=== PATIENT | male | born 1965 | race Two or more races ===

== ENCOUNTER 2018-11-07 14:49 | Emergency (ER) | payer SELFPAY ==
--- NOTE | 2018-11-07 15:50 | EDM.PDOC ---
ED HPI GENERAL MEDICAL PROBLEM - General Chief Complaint: Abdominal Pain Stated Complaint: ABDOMINAL PAIN Time Seen by Provider: 11/07/18 15:37 Source of Information: Reports: Patient, RN Notes Reviewed History Limitations: Reports: No Limitations - History of Present Illness INITIAL COMMENTS - FREE TEXT/NARRATIVE: Patient is a 53-year-old male who presents to the ED for evaluation of abdominal pain. He states that this is a sharp pain located directly behind his belly button. This has been present for around 3 days now and he has been vomiting with this daily. He noted that on Wednesday he had diarrhea, about 10 episodes, but has had regular bowel movement since then. The patient states that he has had fever and chills, and has not had much of an appetite, and has not been able to keep much down at all if he is eating. He did have a history of an umbilical hernia repair in 2005. He does not note any other previous GI issues like colitis or diverticulitis. He states his primary care doc is a Dr. Olmos in [place]. He further relates a history of high blood pressure and diabetes. He cannot remember the exact name of his medications but he states therefore blood pressure and diabetes at this time. He notes that the only abdominal surgery he had has been for the hernia repair and 2005. He notes a history of polycystic kidney disease. Abdomen Pain Score (Numeric/FACES): 8 - Related Data Allergies Allergy/AdvReac Type Severity Reaction Status Date / Time No Known Allergies Allergy Verified 11/07/18 15:21 Home Meds: Home Meds Ondansetron [Zofran ODT] 8 mg PO Q8H PRN #28 tab.dis 11/07/18 [Rx] Past Medical History Cardiovascular History: Reports: Hypertension Genitourinary History: Reports: Renal Calculus, Renal Disease Endocrine/Metabolic History: Reports: Diabetes, Type I - Past Surgical History GI Surgical History: Reports: Hernia, Abdominal Male Surgical History: Reports: Kidney Stone Extraction Musculoskeletal Surgical History: Reports: Other (See Below) Other Musculoskeletal Surgeries/Procedures:: right ankle surgery Social & Family History - Family History Family Medical History: Noncontributory - Tobacco Use Smoking Status *Q: Never Smoker - Caffeine Use Caffeine Use: Reports: Coffee - Recreational Drug Use Recreational Drug Use: No ED ROS GENERAL - Review of Systems Review Of Systems: See Below Constitutional: Reports: Fever, Decreased Appetite HEENT: Reports: No Symptoms Respiratory: Reports: No Symptoms Cardiovascular: Reports: No Symptoms GI/Abdominal: Reports: Abdominal Pain (behind belly button, and generalized lower abdominal pain), Diarrhea, Decreased Appetite, Flatus, Nausea, Vomiting. Denies: Black Stool, Bloody Stool, Constipation : Denies: Dysuria, Flank Pain, Frequency Musculoskeletal: Reports: No Symptoms Skin: Reports: No Symptoms Neurological: Reports: No Symptoms Psychiatric: Reports: No Symptoms Hematologic/Lymphatic: Reports: No Symptoms Immunologic: Reports: No Symptoms ED EXAM, GI/ABD - Physical Exam Exam: See Below Exam Limited By: No Limitations General Appearance: Alert, WD/WN, No Apparent Distress Eyes: Bilateral: Normal Appearance Ears: Normal External Exam Nose: Normal Inspection Throat/Mouth: Normal Inspection, Normal Lips, Normal Teeth, Normal Gums, Normal Oropharynx, Normal Voice, No Airway Compromise Head: Atraumatic, Normocephalic Neck: Normal Inspection Respiratory/Chest: No Respiratory Distress, Lungs Clear, Normal Breath Sounds, No Accessory Muscle Use, Chest Non-Tender Cardiovascular: Normal Peripheral Pulses, Regular Rate, Rhythm, No Murmur GI/Abdominal Exam: Normal Bowel Sounds, Soft, No Distention, Tender ( periumbilically and generalized RLQ and LLL) Back Exam: Normal Inspection, Full Range of Motion Extremities: Normal Inspection, Normal Capillary Refill Neurological: Alert, Oriented, Normal Cognition, Normal Gait, No Motor/Sensory Deficits Psychiatric: Normal Affect, Normal Mood Skin Exam: Warm, Dry, Intact, Normal Color, No Rash Course - Vital Signs Last Recorded V/S: Last Vital Signs Temp 97.2 F 11/07/18 15:21 Pulse 98 11/07/18 15:21 Resp 16 11/07/18 15:21 BP 181/109 H 11/07/18 15:21 Pulse Ox 98 11/07/18 15:21 - Orders/Labs/Meds Orders: Active Orders 24 hr Category Date Time Status UA W/MICROSCOPIC [URIN] Stat Lab 11/07/18 15:57 Ordered Sodium Chloride 0.9% [Normal Saline] 1,000 ml Med 11/07/18 16:00 Ordered IV ASDIRECTED Medication Orders Sodium Chloride (Normal Saline) 1,000 mls @ 999 mls/hr IV ASDIRECTED TUNG Last Admin: 11/07/18 16:36 Dose: 999 mls/hr Labs: Laboratory Tests 11/07/18 11/07/18 Range/Units 17:10 17:10 WBC 8.41 (4.23-9.07) K/mm3 RBC 5.50 (4.63-6.08) M/mm3 Hgb 13.4 L (13.7-17.5) gm/L Hct 42.7 (40.1-51.0) % MCV 77.6 L (79.0-92.2) fl MCH 24.4 L (25.7-32.2) pg MCHC 31.4 L (32.2-35.5) g/dl RDW Std Deviation 42.6 (35.1-43.9) fL Plt Count 484 H (163-337) K/mm3 MPV 9.8 (9.4-12.3) fl Neutrophils % (Manual) 67 H (40-60) % Band Neutrophils % 0 (0-10) % Lymphocytes % (Manual) 26 (20-40) % Atypical Lymphs % 0 % Monocytes % (Manual) 3 (2-10) % Eosinophils % (Manual) 3 (0.8-7.0) % Basophils % (Manual) 1 (0.2-1.2) Platelet Estimate Increased Plt Morphology Comment See note Hypochromasia 1+ slight Microcytosis 1+ slight RBC Morph Comment Not Reportable Sodium 141 (136-145) mEq/L Potassium 4.4 (3.5-5.1) mEq/L Chloride 104 (98-107) mEq/L Carbon Dioxide 28 (21-32) mEq/L Anion Gap 13.4 (5-15) BUN 20 H (7-18) mg/dL Creatinine 2.0 H (0.7-1.3) mg/dL Est Cr Clr Drug Dosing 45.12 mL/min Estimated GFR (MDRD) 35 (>60) mL/min BUN/Creatinine Ratio 10.0 L (14-18) Glucose 126 H (74-106) mg/dL Calcium 9.1 (8.5-10.1) mg/dL Total Bilirubin 0.4 (0.2-1.0) mg/dL AST 16 (15-37) U/L ALT 20 (16-63) U/L Alkaline Phosphatase 174 H (46-116) U/L Total Protein 8.2 (6.4-8.2) g/dl Albumin 2.9 L (3.4-5.0) g/dl Globulin 5.3 gm/dL Albumin/Globulin Ratio 0.6 L (1-2) Meds: Medications Generic Name Dose Route Start Last Admin Trade Name Freq PRN Reason Stop Dose Admin Sodium Chloride 1,000 mls @ 999 mls/hr 11/07/18 16:00 11/07/18 16:36 Normal Saline IV 999 mls/hr ASDIRECTED TUNG Administration Discontinued Medications Generic Name Dose Route Start Last Admin Trade Name Freq PRN Reason Stop Dose Admin Diatrizoate Meglum/Diatrizoate Sod 60 ml 11/07/18 16:16 11/07/18 17:16 Gastrografin 37% PO 11/07/18 16:17 60 ml ONETIME ONE Administration Hydromorphone HCl 0.5 mg 11/07/18 15:57 11/07/18 16:38 Dilaudid IVPUSH 11/07/18 15:58 0.5 mg ONETIME STA Administration Iopamidol 100 ml 11/07/18 16:16 11/07/18 17:16 Isovue-370 (76%) IV 11/07/18 16:17 100 ml ONETIME ONE Administration Ondansetron HCl 4 mg 11/07/18 15:57 11/07/18 16:37 Zofran IVPUSH 11/07/18 15:58 4 mg ONETIME ONE Administration - Radiology Interpretation Free Text/Narrative:: CT abdomen and pelvis Technique: Multiple axial sections were obtained from below the dome of the diaphragm inferiorly through the pubic symphysis. Delayed images were also obtained from above the dome of the diaphragm inferiorly through the pubic symphysis. Intravenous and oral contrast was utilized. Comparison: No prior CT abdomen or pelvis exam or other abdominal imaging. Findings: Visualized lung bases are clear. Liver contains no focal abnormality. Spleen appears within normal limits. Adrenal glands show no nodule. Pancreas is normal. Cystic change is noted within both kidneys having the appearance of polycystic renal disease. Nonobstructing calculi are seen within the left kidney which number approximately 3. Largest stone measures 1.2 cm. No ureteral dilatation is seen. Delayed images shows contrast excretion into nondilated ureters which continues into the bladder with contrast also seen within the bladder. Aorta shows no aneurysm. No retroperitoneal adenopathy is seen. No mesenteric abnormalities are seen. Gallbladder contains no calcified gallstones. Nonspecific fluid collection is seen anteriorly at the level of the umbilicus measuring 3.3 cm. This is nonspecific but likely incidental given its fluid- containing No pelvic mass or adenopathy is seen. Small fat-containing inguinal hernias are noted. Appendix is seen which is normal in size. Contrast noted within the distal esophagus compatible with reflux. Bone window settings were reviewed which shows a moderately severe compression deformity of L1 which is likely old. Mild degenerative change is scattered within the spine. Impression: 1. Polycystic renal disease. Nonobstructing calculi within the left kidney. No ureteral calculi. Bilateral excretion of contrast on delayed images into nondilated ureters as well as contrast seen within the bladder. 2. Contrast reflux into the distal esophagus. 3. Other incidental findings. - Re-Assessments/Exams Free Text/Narrative Re-Assessment/Exam: 11/07/18 16:38 Patient presents to the ED for abdominal pain. I did order a CBC, CMP, UA, abdomen/pelvis CT with contrast, IV fluids, 0.5 mg IV Dilaudid and 4 mg IV Zofran for initial management. 11/07/18 19:18 Labs are back and are suggestive of stable chronic kidney disease secondary to diabetes, but no acute abnormalities at this time. It is likely that he has gastroenteritis causing his issues. His CT did demonstrate kidney stones within his polycystic kidneys, but I do not believe that this is the cause of his problems at this time. Departure - Departure Time of Disposition: 19:25 Disposition: Home, Self-Care 01 Condition: Fair Clinical Impression: Gastroenteritis - Discharge Information *PRESCRIPTION DRUG MONITORING PROGRAM REVIEWED*: No *COPY OF PRESCRIPTION DRUG MONITORING REPORT IN PATIENT KATHY: No Prescriptions: Ondansetron [Zofran ODT] 8 mg PO Q8H PRN #28 tab.dis PRN Reason: Nausea Instructions: Nausea and Vomiting, Adult, [id number], Food Choices to Help Relieve Diarrhea, Adult Referrals: PCP,Not In Area [Primary Care Provider] - Forms: ED Department Discharge, ED Return to Work/School Form Additional Instructions: You have been evaluated in the ED for nausea/vomiting. It is likely that this is caused from a viral gastroenteritis. You have received IV fluid in the ED to help with the dehydration from the vomiting and diarrhea. Over the next 24-48 hours please try to limit your diet to clear liquids and advance to bland diet as tolerated to alleviate symptoms of nausea/vomiting. Please use the Zofran every 8 hours as needed for nausea. This medication has been electronically sent to the [facility] located in the [employer] in the [facility]. You may take [id number] Tylenol/ibuprofen for general aches and pain relief. Please return to the ED if your symptoms should change or worsen. - My Orders Last 24 Hours: My Active Orders 11/07/18 15:57 UA W/MICROSCOPIC [URIN] Stat 11/07/18 16:00 Sodium Chloride 0.9% [Normal Saline] 1,000 ml IV ASDIRECTED - Assessment/Plan Last 24 Hours: My Active Orders 11/07/18 15:57 UA W/MICROSCOPIC [URIN] Stat 11/07/18 16:00 Sodium Chloride 0.9% [Normal Saline] 1,000 ml IV ASDIRECTED
[2018-11-07] MEDS ORDERED: Ondansetron 4 MG/2 ML SDV IVPUSH ONE (15:57)
[2018-11-07] MEDS ORDERED: HYDROmorphone 1 MG/ML Syringe IVPUSH STA (15:57)
[2018-11-07] MEDS ORDERED: Sodium Chloride 0.9% 1,000 ML IV SCH (16:00)
[2018-11-07] MEDS ORDERED: Diatrizoate Meglumine/Diatrizoate Sodium 37% 120 ML Bottle PO ONE (16:16)
[2018-11-07] MEDS ORDERED: Iopamidol 755 Mg/ML 200 ML Bottle IV ONE (16:16)
--- NOTE | 2018-11-07 18:35 | CT ---
CT abdomen and pelvis Technique: Multiple axial sections were obtained from below the dome of the diaphragm inferiorly through the pubic symphysis. Delayed images were also obtained from above the dome of the diaphragm inferiorly through the pubic symphysis. Intravenous and oral contrast was utilized. Comparison: No prior CT abdomen or pelvis exam or other abdominal imaging. Findings: Visualized lung bases are clear. Liver contains no focal abnormality. Spleen appears within normal limits. Adrenal glands show no nodule. Pancreas is normal. Cystic change is noted within both kidneys having the appearance of polycystic renal disease. Nonobstructing calculi are seen within the left kidney which number approximately 3. Largest stone measures 1.2 cm. No ureteral dilatation is seen. Delayed images shows contrast excretion into nondilated ureters which continues into the bladder with contrast also seen within the bladder. Aorta shows no aneurysm. No retroperitoneal adenopathy is seen. No mesenteric abnormalities are seen. Gallbladder contains no calcified gallstones. Aorta shows no aneurysm. No retroperitoneal adenopathy or mesenteric abnormalities are seen. Nonspecific fluid collection is seen anteriorly at the level of the umbilicus measuring 3.3 cm. This is nonspecific but likely incidental given its fluid-containing Hounsfield units. No pelvic mass or adenopathy is seen. Small fat-containing inguinal hernias are noted. Appendix is seen which is normal in size. Contrast noted within the distal esophagus compatible with reflux. Bone window settings were reviewed which shows a moderately severe compression deformity of L1 which is likely old. Mild degenerative change is scattered within the spine. Impression: 1. Polycystic renal disease. Nonobstructing calculi within the left kidney. No ureteral calculi. Bilateral excretion of contrast on delayed images into nondilated ureters as well as contrast seen within the bladder. 2. Contrast reflux into the distal esophagus. 3. Other incidental findings. Diagnostic code #3
== END 2018-11-07 19:42 | disposition home or self-care (01) ==
LOC: JD.ED 14:49
DX: K52.9 Noninfective gastroenteritis and colitis, unspecified (principal); I10 Essential (primary) hypertension; E10.9 Type 1 diabetes mellitus without complications
CPT/HCPCS: 36415; 74177; 80053; 85007; 85027; 96361; 96374; 96375; 99284; J1170; J2405; J7040; Q9963; Q9967